=== PATIENT | male | born 1970 | race Caucasian/White ===

== ENCOUNTER 2022-07-16 02:21 | Emergency (ER) | payer MEDICAID, OTHER ==
[~2022-07-16] VITALS: Ht 167.6 cm; Wt 82.0 kg
[2022-07-16] MEDS ORDERED: LIDOCAINE HCL/PF 1% 10 MG/ML 5ML VIAL INFIL ONE (03:00)
[2022-07-16] MEDS ORDERED: BACITRACIN ZINC OINT UDPKT TOP ONE (03:00)
[2022-07-16] MEDS ORDERED: ACETAMINOPHEN 325MG TABLET PO ONE (03:00)
[2022-07-16 05:35] LABS: BASOPHILS % 0.4 % (0.0-2.0); EOSINOPHILS % 0.1 % (0.0-5.0); HEMOGLOBIN. 15.8 g/dL (14.0-18.0); MEAN CORPUSCULAR HEMOGLOBIN 31.5 pg (28.0-32.0); MEAN CORPUSCULAR VOLUME 93.4 fL (80.0-94.0); MEAN PLATELET VOLUME 7.6 fl (7.4-10.4); MONOCYTES % 11.1 % (2.0-8.0); NEUTROPHILS % 76.4 % (40.0-76.0); PLATELET 232 x1000/uL (130-400); RED BLOOD CELL COUNT 5.03 mill/uL (4.7-6.1); RED CELL DISTRIBUTION WIDTH 14.5 % (11.6-14.6)
[2022-07-16 05:41] LABS: CHLORIDE 104 mEq/L (98-107)
[2022-07-16 05:48] LABS: ETHANOL BLOOD < 10 mg/dL
[2022-07-16] MEDS ORDERED: SODIUM CHLORIDE 0.9% 1,000 ML IV ONE (07:00)
[2022-07-16] MEDS: FLUOXETINE HCL 10 MG CAPSULE PO SCH (12:52)
[2022-07-16 13:28] LABS: *AMPHETAMINES SCREEN URINE PRESUMTIVE POSITIVE (NEGATIVE); *BARBITURATES SCREEN URINE NEGATIVE (NEGATIVE); *BENZODIAZEPINES SCREEN URINE NEGATIVE (NEGATIVE); *COCAINE SCREEN URINE NEGATIVE (NEGATIVE); CANNABINOID URINE SCREEN NEGATIVE (NEGATIVE); METHADONE URINE SCREEN NEGATIVE (NEGATIVE); OPIATES URINE SCREEN NEGATIVE (NEGATIVE); PHENCYCLIDINE URINE SCREEN NEGATIVE (NEGATIVE)
[2022-07-16] MEDS: ARIPIPRAZOLE 5MG TABLET PO SCH (21:00)
[2022-07-17] MEDS: FLUOXETINE HCL 10 MG CAPSULE PO SCH (09:11)
[2022-07-17] MEDS ORDERED: ACETAMINOPHEN 325MG TABLET PO ONE (09:45)
[2022-07-17 13:26] LABS: CLARITY URINE TURBID (CLEAR); COLOR URINE DARK YELLOW (YELLOW); KETONES URINE TRACE (NEGATIVE); LEUKOCYTE ESTERASE URINE TRACE (NEGATIVE); NITRITE URINE NEGATIVE (NEGATIVE); OCCULT BLOOD URINE TRACE (NEGATIVE); PH URINE 5.5 (4.5-8.0); PROTEIN URINE 2+ (NEGATIVE); SPECIFIC GRAVITY URINE 1.027 (1.005-1.030); UROBILINOGEN URINE 0.2 E.U./dL (0.2-1.0)
[2022-07-17] MEDS ORDERED: IBUPROFEN 600MG TABLET PO ONE (17:30)
[2022-07-17] MEDS: ARIPIPRAZOLE 5MG TABLET PO SCH (21:15)
[2022-07-17] MEDS ORDERED: COLCHICINE 0.6MG TABLET PO ONE (22:45)
[2022-07-18] MEDS: IBUPROFEN 600MG TABLET PO SCH ×5 (01:15→21:46)
[2022-07-18] MEDS: FLUOXETINE HCL 10 MG CAPSULE PO SCH (09:10)
[2022-07-18] MEDS ORDERED: COLCHICINE 0.6MG TABLET PO ONE (21:30)
[2022-07-18] MEDS: ARIPIPRAZOLE 5MG TABLET PO SCH (21:46)
[2022-07-19] MEDS: FLUOXETINE HCL 10 MG CAPSULE PO SCH (09:00)
[2022-07-19] MEDS: IBUPROFEN 600MG TABLET PO SCH ×4 (09:00→21:00)
[2022-07-19] MEDS: ARIPIPRAZOLE 5MG TABLET PO SCH (21:00)
[2022-07-20] MEDS: FLUOXETINE HCL 10 MG CAPSULE PO SCH (09:50)
[2022-07-20] MEDS: IBUPROFEN 600MG TABLET PO SCH ×3 (09:50→21:00)
[2022-07-20 16:12] LABS: CHLORIDE 105 mEq/L (98-107)
[2022-07-21] MEDS: IBUPROFEN 600MG TABLET PO SCH ×2 (00:35→09:42)
[2022-07-21] MEDS: ARIPIPRAZOLE 5MG TABLET PO SCH (00:35)
[2022-07-21] MEDS: FLUOXETINE HCL 10 MG CAPSULE PO SCH (09:42)
[2022-07-21 12:00] VITALS: BP 162/100
== END 2022-07-21 13:37 | disposition home or self-care (01) ==
LOC: ER 02:21
DX: S61.412A Laceration without foreign body of left hand, initial encounter (principal); Z20.822 Contact with and (suspected) exposure to COVID-19; X58.XXXA Exposure to other specified factors, initial encounter; Y93.89 Activity, other specified; Y92.89 Other specified places as the place of occurrence of the external cause; Y99.8 Other external cause status
CPT/HCPCS: 12002; 36415; 80053; 80305; 80307; 80320; 80329; 81003; 85025; 87426; 99285; C9803; J3490; J7030; Z7610; G0480